=== PATIENT | male | born 2000 | race Caucasian/White ===

== ENCOUNTER 2023-04-15 15:25 | Inpatient (IN) ==
[2023-04-15] MEDS ORDERED: NS 0.9% 1000 ml BAG 1,000 ML IV ONE (15:31)
[2023-04-15 15:48] LABS: ABS Lymphocytes 0.8 10^3/uL (1.0-4.8); ABS Monocytes 0.5 10^3/uL (0.0-1.1); ABS Neutrophils 5.4 10^3/uL (1.5-7.6); Hematocrit 42.6 % (38-53); Hemoglobin 15.1 g/dL (13.2-16.3); Lymphocyte % 11.8 %; Mean Corpuscular Hemoglobin 30.9 pg (27-33); Mean Corpuscular Hgb Conc 35.4 g/dL (31-36); Mean Corpuscular Volume 87.4 fL (80-97); Mean Platelet Volume 8.4 fL (7.5-11.2); Nucleated Red Blood Cells % 0.1 /100 WBC (0.0-0.4); Platelet Count 211 10^3/uL (150-450); Red Blood Count 4.87 10^6/uL (4.06-5.63); Red Cell Distribution Width 12.5 % (12-17); White Blood Count 6.7 10^3/uL (3.6-10.2)
[2023-04-15 16:16] LABS: ALT 15 U/L (7-52); AST 18 U/L (13-39); Albumin 4.9 g/dL (3.2-5.2); Albumin/Globulin Ratio 2.6 (1-3); Alkaline Phosphatase 58 U/L (35-149); Anion Gap 8 mmol/L (2-16); Blood Urea Nitrogen 14 mg/dL (6-24); CO2 Carbon Dioxide 29 mmol/L (22-32); Calcium 10.2 mg/dL (8.6-10.3); Chloride 101 mmol/L (101-111); Creatinine, Serum 0.89 mg/dL (0.67-1.17); Globulin 1.9 g/dL (2-4); Glucose 106 mg/dL (70-100); Potassium 4.5 mmol/L (3.5-5.0); Sodium 138 mmol/L (135-145); Total Protein 6.8 g/dL (6.4-8.9); eGFR CKD-EPI 123.5 (>60)
[2023-04-15 16:18] LABS: Acetaminophen < 15 mcg/mL; Alcohol, S < 13 mg/dL (<13); Salicylate < 2.50 mg/dL (<30)
[2023-04-15 16:33] LABS: TSH Ultra Thyroid Stim Horm 0.87 mcIU/mL (0.34-5.60)
[2023-04-15] MEDS ORDERED: LORazepam 2 mg VIAL 1 ml ONE (17:49)
[2023-04-15] MEDS ORDERED: Lorazepam PYXIS KEY PRN (17:49)
[2023-04-15] MEDS ORDERED: LORazepam 2 mg VIAL 1 ml IV PUSH ONE (17:49)
[2023-04-15 18:46] LABS: Urine Appearance Clear; Urine Bilirubin Negative (Negative); Urine Blood Negative (Negative); Urine Color Yellow; Urine Glucose Negative (Negative); Urine Ketones Trace (Negative); Urine Nitrite Negative (Negative); Urine Protein 1+(30 mg/dL) (Negative); Urine Specific Gravity 1.027 (1.002-1.030); Urine Urobilinogen Positive (Negative)
[2023-04-15 18:54] LABS: Urine Bacteria Absent (Absent); Urine Red Blood Cell Trace(0-2/hpf) (Absent); Urine White Blood Cell Absent (Absent)
[2023-04-15 18:58] LABS: Urine Benzodiazepine Screen Presumptive Positive (None Detect); Urine Cannabinoids Screen None Detected (None Detect); Urine Opiates Screen None Detected (None Detect)
[2023-04-15] MEDS ORDERED: Al Hydrox/Mg Hydrox/Simet LIQ 30 ML UDC PO PRN (20:17)
[2023-04-16 08:03] LABS: HDL Cholesterol 38.3 mg/dL
[2023-04-16] MEDS: Vitamin THERAPEUTIC TAB PO SCH (08:40)
[2023-04-16] MEDS ORDERED: risperiDONE-M 1 mg Oradis TAB ONE (10:12)
[2023-04-16] MEDS: risperiDONE-M 1 mg Oradis TAB PO SCH ×2 (10:18→21:33)
[2023-04-17] MEDS: risperiDONE-M 1 mg Oradis TAB PO SCH (09:32)
[2023-04-17] MEDS: Vitamin THERAPEUTIC TAB PO SCH (09:32)
[2023-04-17] MEDS: OLANZapine 5 mg TAB *ODT PO SCH (21:13)
[2023-04-18] MEDS: Vitamin THERAPEUTIC TAB PO SCH (08:55)
[2023-04-18] MEDS: OLANZapine 5 mg TAB *ODT PO SCH (20:23)
[2023-04-19] MEDS: Vitamin THERAPEUTIC TAB PO SCH (08:00)
[2023-04-19] MEDS: OLANZapine 10 mg TAB*ODT PO SCH (20:37)
[2023-04-20] MEDS: Vitamin THERAPEUTIC TAB PO SCH (09:32)
[2023-04-20] MEDS: OLANZapine 10 mg TAB*ODT PO SCH (20:29)
[2023-04-21] MEDS: Vitamin THERAPEUTIC TAB PO SCH (10:01)
[2023-04-21] MEDS: OLANZapine 10 mg TAB*ODT PO SCH (21:30)
[2023-04-22] MEDS: Vitamin THERAPEUTIC TAB PO SCH (09:10)
[2023-04-22] MEDS: OLANZapine 10 mg TAB*ODT PO SCH (21:44)
[2023-04-23] MEDS: Vitamin THERAPEUTIC TAB PO SCH (09:00)
[2023-04-23] MEDS: OLANZapine 10 mg TAB*ODT PO SCH (20:18)
[2023-04-24] MEDS: Vitamin THERAPEUTIC TAB PO SCH (09:50)
[2023-04-24] MEDS: OLANZapine 10 mg TAB*ODT PO SCH (21:37)
[2023-04-25] MEDS: Vitamin THERAPEUTIC TAB PO SCH (09:14)
[2023-04-25] MEDS: OLANZapine 10 mg TAB*ODT PO SCH (20:09)
[2023-04-26] MEDS: Vitamin THERAPEUTIC TAB PO SCH (09:11)
[2023-04-26] MEDS ORDERED: OLANZapine 5 mg TAB *ODT PO SCH (21:00)
[2023-04-27] MEDS: Vitamin THERAPEUTIC TAB PO SCH (09:55)
[2023-04-27] MEDS: OLANZapine 10 mg TAB*ODT PO SCH (21:13)
[2023-04-28] MEDS: Vitamin THERAPEUTIC TAB PO SCH (08:50)
[2023-04-28] MEDS: OLANZapine 10 mg TAB*ODT PO SCH (20:46)
[2023-04-29] MEDS: Vitamin THERAPEUTIC TAB PO SCH (08:52)
[2023-04-29] MEDS: OLANZapine 10 mg TAB*ODT PO SCH (20:48)
[2023-04-30] MEDS: Vitamin THERAPEUTIC TAB PO SCH (09:21)
[2023-04-30] MEDS: OLANZapine 10 mg TAB*ODT PO SCH (20:43)
[2023-05-01] MEDS: Vitamin THERAPEUTIC TAB PO SCH (08:25)
[2023-05-01 09:26] VITALS: BP 116/74
[2023-05-02] MEDS: Vitamin THERAPEUTIC TAB PO SCH (08:23)
== END 2023-05-02 08:54 | disposition home or self-care (01) | DRG 751 ==
LOC: ED 15:25 → EDHOLD 20:04 → BSU 21:03
PROVIDERS: ADMIT Student in an Organized Health Care Education/Training Program; ATTEND Student in an Organized Health Care Education/Training Program